=== PATIENT | male | born 1965 | race Caucasian/White ===

== ENCOUNTER 2017-08-08 13:46 | Emergency (ER) | payer OTHER ==
[~2017-08-08] VITALS: Ht 172.7 cm; Wt 78.0 kg
[2017-08-08] MEDS ORDERED: ASPIRIN 81MG TABLET PO ONE (14:30)
[2017-08-08 14:58] LABS: BASOPHILS % 3.7 % (0.0-2.0); HEMATOCRIT. 36.4 % (42.0-52.0); HEMOGLOBIN. 12.4 g/dL (14.0-18.0); LYMPHOCYTES % 51.9 % (20.0-50.0); MEAN CORPUSCULAR HEMOGLOBIN 30.7 pg (28.0-32.0); MEAN CORPUSCULAR VOLUME 90.4 fL (80.0-94.0); MEAN PLATELET VOLUME 8.8 fl (7.4-10.4); MONOCYTES % 9.9 % (2.0-8.0); NEUTROPHILS % 30.5 % (40.0-76.0); PLATELET 182 x1000/uL (130-400); RED BLOOD CELL COUNT 4.02 mill/uL (4.7-6.1); RED CELL DISTRIBUTION WIDTH 17.3 % (11.6-14.6)
[2017-08-08 15:07] LABS: INR 1.1; PROTHROMBIN TIME 11.8 sec (9.4-11.6)
[2017-08-08 15:13] LABS: CARBON DIOXIDE 24 mEq/L (21-32); CHLORIDE 102 mEq/L (98-107)
[2017-08-08 15:15] LABS: TROPONIN I < 0.02 ng/mL (0.00-0.04)
[2017-08-08 15:22] LABS: CLARITY URINE CLEAR (CLEAR); COLOR URINE YELLOW (YELLOW); GLUCOSE URINE NEGATIVE (NEGATIVE); KETONES URINE NEGATIVE (NEGATIVE); LEUKOCYTE ESTERASE URINE NEGATIVE (NEGATIVE); NITRITE URINE NEGATIVE (NEGATIVE); OCCULT BLOOD URINE 1+ (NEGATIVE); PROTEIN URINE 1+ (NEGATIVE); SPECIFIC GRAVITY URINE 1.009 (1.005-1.030); UROBILINOGEN URINE 0.2 E.U./dL (0.2-1.0)
[2017-08-08 15:36] LABS: *AMPHETAMINES SCREEN URINE NEGATIVE (NEGATIVE); *BARBITURATES SCREEN URINE NEGATIVE (NEGATIVE); *BENZODIAZEPINES SCREEN URINE NEGATIVE (NEGATIVE); *COCAINE SCREEN URINE NEGATIVE (NEGATIVE); CANNABINOID URINE SCREEN NEGATIVE (NEGATIVE); METHADONE URINE SCREEN NEGATIVE (NEGATIVE); OPIATES URINE SCREEN NEGATIVE (NEGATIVE); PHENCYCLIDINE URINE SCREEN NEGATIVE (NEGATIVE)
[2017-08-08 17:01] VITALS: BP 142/98
== END 2017-08-08 18:07 | disposition left against medical advice (07) ==
LOC: ER 14:54 → CANBEDREQ 18:04 → ER 18:07
DX: R42 Dizziness and giddiness (principal); R00.2 Palpitations; R07.89 Other chest pain; Z79.82 Long term (current) use of aspirin
CPT/HCPCS: 36415; 71010; 80053; 80305; 81001; 83880; 84484; 85025; 85610; 93005; 99285

== ENCOUNTER 2021-04-18 03:09 | Emergency (ER) | payer OTHER ==
[~2021-04-18] VITALS: Ht 170.2 cm; Wt 75.9 kg
[2021-04-18 04:47] LABS: HEMATOCRIT. 30.4 % (42.0-52.0); MEAN CORPUSCULAR HEMOGLOBIN 26.7 pg (28.0-32.0); MEAN CORPUSCULAR VOLUME 81.5 fL (80.0-94.0); MEAN PLATELET VOLUME 8.8 fl (7.4-10.4); PLATELET 162 x1000/uL (130-400); RED BLOOD CELL COUNT 3.74 mill/uL (4.7-6.1); RED CELL DISTRIBUTION WIDTH 20.2 % (11.6-14.6)
[2021-04-18 04:50] LABS: CLARITY URINE CLOUDY (CLEAR); COLOR URINE YELLOW (YELLOW); KETONES URINE NEGATIVE (NEGATIVE); LEUKOCYTE ESTERASE URINE 3+ (NEGATIVE); NITRITE URINE POSITIVE (NEGATIVE); OCCULT BLOOD URINE 1+ (NEGATIVE); PH URINE 5.5 (4.5-8.0); PROTEIN URINE TRACE (NEGATIVE); SPECIFIC GRAVITY URINE 1.007 (1.005-1.030); UROBILINOGEN URINE 0.2 E.U./dL (0.2-1.0)
[2021-04-18 04:50] LABS: CHLORIDE 103 mEq/L (98-107)
[2021-04-18] MEDS ORDERED: CEFP200T13 MT (05:11)
[2021-04-18] MEDS ORDERED: POTASSIUM CHLORIDE 20MEQ TABLET SR PO ONE (05:30)
[2021-04-18 05:48] VITALS: BP 145/85
[2021-04-18 06:15] LABS: PLATELET ESTIMATE NORMAL
== END 2021-04-18 05:58 | disposition home or self-care (01) ==
LOC: ER 03:09
DX: R33.9 Retention of urine, unspecified (principal)
CPT/HCPCS: 36415; 51702; 80048; 81003; 85025; 87077; 87186; 99283; 99284

== ENCOUNTER 2021-04-24 18:25 | Emergency (ER) | payer OTHER ==
[~2021-04-24] VITALS: Ht 160 cm; Wt 76.0 kg
[~2021-04-24 18:25] MED LIST: CEFP200T13 MT
[2021-04-24 18:31] VITALS: BP 134/60
== END 2021-04-24 19:41 | disposition home or self-care (01) ==
LOC: ER 18:25
DX: N39.0 Urinary tract infection, site not specified (principal); R03.0 Elevated blood-pressure reading, without diagnosis of hypertension
CPT/HCPCS: 99281

== ENCOUNTER 2022-03-24 21:44 | Emergency (ER) | payer OTHER ==
[~2022-03-24] VITALS: Ht 167.6 cm; Wt 75.9 kg
[2022-03-24 21:52] VITALS: BP 125/72
== END 2022-03-25 00:30 | disposition left against medical advice (07) ==
LOC: ER 21:44
DX: Z53.21 Procedure and treatment not carried out due to patient leaving prior to being seen by health care provider (principal)

== ENCOUNTER 2022-09-09 23:10 | Emergency (ER) | payer MEDICAID, OTHER ==
[~2022-09-09] VITALS: Ht 175.3 cm; Wt 74.7 kg
[2022-09-10] MEDS ORDERED: KETOROLAC 60MG/2ML VIAL IM STA (03:02)
[2022-09-10] MEDS ORDERED: ONDANSETRON 4MG ODT PO STA (03:02)
[2022-09-10 03:44] LABS: HEMATOCRIT. 34.8 % (42.0-52.0); HEMOGLOBIN. 11.7 g/dL (14.0-18.0); MEAN CORPUSCULAR HEMOGLOBIN 29.8 pg (28.0-32.0); MEAN CORPUSCULAR VOLUME 88.3 fL (80.0-94.0); MEAN PLATELET VOLUME 9.1 fl (7.4-10.4); PLATELET 127 x1000/uL (130-400); RED BLOOD CELL COUNT 3.94 mill/uL (4.7-6.1); RED CELL DISTRIBUTION WIDTH 17.9 % (11.6-14.6)
[2022-09-10 03:47] LABS: CLARITY URINE CLOUDY (CLEAR); COLOR URINE DARK YELLOW (YELLOW); KETONES URINE TRACE (NEGATIVE); LEUKOCYTE ESTERASE URINE 3+ (NEGATIVE); NITRITE URINE NEGATIVE (NEGATIVE); OCCULT BLOOD URINE 2+ (NEGATIVE); PROTEIN URINE 3+ (NEGATIVE); SPECIFIC GRAVITY URINE 1.013 (1.005-1.030)
[2022-09-10 03:50] LABS: CHLORIDE 94 mEq/L (98-107)
[2022-09-10] MEDS ORDERED: CEFTRIAXONE 1 G PREMIX 50 ML IV ONE (04:30)
[2022-09-10] MEDS ORDERED: SODIUM CHLORIDE 0.9% 1,000 ML IV ONE (04:30)
[2022-09-10 07:05] VITALS: BP 142/78
[2022-09-10] MEDS ORDERED: CEFTRIAXONE 1 G PREMIX 50 ML IV NR (07:31)
[2022-09-10 08:51] LABS: PLATELET ESTIMATE SLIGHTLY DECREASED
== END 2022-09-10 10:45 | disposition short-term general hospital (02) ==
LOC: ER 23:10
DX: R10.12 Left upper quadrant pain (principal); E87.1 Hypo-osmolality and hyponatremia; Z20.822 Contact with and (suspected) exposure to COVID-19; M54.9 Dorsalgia, unspecified; D64.9 Anemia, unspecified
CPT/HCPCS: 36415; 74176; 76705; 80053; 81001; 81003; 83690; 85025; 87077; 87086; 87186; 87426; 96361; 96365; 96372; 99285; C9803; J0696; J1885; J7030; Q0162

== ENCOUNTER 2022-12-12 15:13 | Emergency (ER) | payer OTHER ==
[~2022-12-12] VITALS: Ht 170.2 cm; Wt 67.3 kg
[2022-12-12 15:51] VITALS: BP 143/78
== END 2022-12-12 21:01 | disposition left against medical advice (07) ==
LOC: ER 15:13
DX: Z53.21 Procedure and treatment not carried out due to patient leaving prior to being seen by health care provider (principal)
CPT/HCPCS: 99281

== ENCOUNTER 2024-07-06 15:48 | Emergency (ER) | payer MEDICAID ==
[~2024-07-06] VITALS: Ht 165.1 cm; Wt 73.0 kg
[~2024-07-06 15:48] MED LIST changes: +AMLO10TA80 PO; +ASPI-1406 PO; +KEPP500 PO
[2024-07-06 15:55] VITALS: O2SAT 100
[2024-07-06] MEDS ORDERED: ONDANSETRON HCL 4MG/2ML INJ IV STA (17:15)
[2024-07-06] MEDS ORDERED: PANTOPRAZOLE SODIUM 40 MG/VIAL IV ONE (17:30)
[2024-07-06 18:02] LABS: BASOPHILS % 0.2 % (0.0-2.0); HEMOGLOBIN. 9.2 g/dL (14.0-18.0); LYMPHOCYTES % 15.8 % (20.0-50.0); MEAN CORPUSCULAR HEMOGLOBIN 30.9 pg (28.0-32.0); MEAN CORPUSCULAR HGB CONC 34.2 g/dL (31.0-37.0); MEAN CORPUSCULAR VOLUME 90.4 fL (80.0-94.0); MEAN PLATELET VOLUME 8.6 fl (7.4-10.4); MONOCYTES % 14.2 % (2.0-8.0); NEUTROPHILS % 69.8 % (40.0-76.0); PLATELET 112 x1000/uL (130-400); RED BLOOD CELL COUNT 2.98 mill/uL (4.7-6.1); RED CELL DISTRIBUTION WIDTH 16.7 % (11.6-14.6); WHITE BLOOD COUNT 5.1 x1000/uL (4.5-11.0)
[2024-07-06 18:06] LABS: CHLORIDE 98 mEq/L (98-107); SODIUM 127 mEq/L (136-145)
[2024-07-06 18:07] LABS: CALCIUM 9.1 mg/dL (8.7-10.4); CARBON DIOXIDE 22 mEq/L (21-32)
[2024-07-06 18:11] LABS: ETHANOL BLOOD 133 mg/dL (<10)
[2024-07-06 18:12] LABS: CREATININE 1.1 mg/dL (0.6-1.3); GLUCOSE 113 mg/dL (70-105); PARTIAL THROMBOPLASTIN TIME 27.2 sec (23.4-31.0); PROTHROMBIN TIME 11.4 sec (9.6-11.0); UREA NITROGEN BLOOD 15 mg/dL (9-23)
[2024-07-06 18:14] LABS: ALANINE AMINOTRANSFERASE 20 IU/L (10-49); ALBUMIN 4.1 g/dL (3.2-4.8); ASPARTATE AMINOTRANSFERASE 58 IU/L (<34); BILIRUBIN DIRECT 0.3 mg/dL (<=3.0); BILIRUBIN TOTAL 0.8 mg/dL (0.1-1.0); PROTEIN TOTAL 7.7 g/dL (6.0-8.3)
[2024-07-06] MEDS ORDERED: MORPHINE SULFATE 4 MG/ML INJ (FOR IV/IM USE) IV ONE (18:30)
[2024-07-06 21:36] LABS: HEMATOCRIT 29.4 % (42.0-52.0); HEMOGLOBIN 9.9 g/dL (14.0-18.0)
[2024-07-06] MEDS: MORPHINE SULFATE 4 MG/ML INJ (FOR IV/IM USE) IV NR (21:45)
[2024-07-06] MEDS: ONDANSETRON HCL 4MG/2ML INJ IV NR (21:45)
[2024-07-06] MEDS: PANTOPRAZOLE SODIUM 40 MG/VIAL IV NR (21:45)
[2024-07-06] MEDS: SODIUM CHLORIDE 0.9% 1,000 ML IV ONE (21:49)
[2024-07-07 00:38] VITALS: BP 154/88; PULSE 98; RESP 16; TEMP 37.61412; O2SAT 100
== END 2024-07-07 01:05 | disposition short-term general hospital (02) ==
LOC: ER 15:48
DX: R19.7 Diarrhea, unspecified (principal); R10.32 Left lower quadrant pain; D64.9 Anemia, unspecified; F10.10 Alcohol abuse, uncomplicated; I10 Essential (primary) hypertension; Z86.73 Personal history of transient ischemic attack (TIA), and cerebral infarction without residual deficits; Z79.82 Long term (current) use of aspirin
CPT/HCPCS: 80076; 80048; 80320; 83690; 85014; 85018; 85025; 85610; 85730; 86850; 86900; 86901; 36415; 74176; 96361; 96374; 96375; 99291; J2405; J2470; J2270; J7030; G0480

== ENCOUNTER 2024-09-23 11:45 | Emergency (ER) | payer MEDICAID, OTHER ==
[~2024-09-23] VITALS: Ht 167.6 cm; Wt 74.8 kg
[2024-09-23 11:50] VITALS: TEMP 98.7; O2SAT 99
[2024-09-23] MEDS: IBUPROFEN 400MG TABLET PO ONE (13:28)
[2024-09-23 13:29] VITALS: BP 166/86; PULSE 98; RESP 16
[2024-09-23] MEDS: HYDROCODONE/ACETAMINOPHEN 5/325MG TABLET PO ONE (13:29)
[2024-09-23] MEDS: ONDANSETRON 4MG ODT PO ONE (13:29)
[2024-09-23] MEDS ORDERED: METH-653 MT (13:48)
[2024-09-23] MEDS ORDERED: IBUP-2028 MT (13:48)
[2024-09-23] MEDS ORDERED: LIDO700A15 TP (13:48)
== END 2024-09-23 14:39 | disposition home or self-care (01) ==
LOC: ER 11:58
DX: M25.561 Pain in right knee (principal); G62.9 Polyneuropathy, unspecified; I10 Essential (primary) hypertension; F19.90 Other psychoactive substance use, unspecified, uncomplicated; Z86.73 Personal history of transient ischemic attack (TIA), and cerebral infarction without residual deficits
CPT/HCPCS: 99284; 93970; 73562; Q0162

== ENCOUNTER 2024-10-22 13:24 | Emergency (ER) | payer MEDICAID ==
[~2024-10-22] VITALS: Ht 170.2 cm; Wt 74.8 kg
[~2024-10-22 13:24] MED LIST changes: +IBUP-2028 MT; +LIDO700A15 TP; +METH-653 MT
[2024-10-22 13:44] VITALS: O2SAT 99
[2024-10-22] MEDS: ONDANSETRON 4MG ODT PO ONE (15:45)
[2024-10-22] MEDS: FAMOTIDINE 20MG TABLET PO ONE (15:45)
[2024-10-22] MEDS: IBUPROFEN 400MG TABLET PO ONE (15:46)
[2024-10-22 17:10] LABS: BASOPHILS % 0.9 % (0.0-2.0); HEMATOCRIT. 28.1 % (42.0-52.0); LYMPHOCYTES % 26.3 % (20.0-50.0); MEAN CORPUSCULAR HEMOGLOBIN 27.5 pg (28.0-32.0); MEAN CORPUSCULAR HGB CONC 31.9 g/dL (31.0-37.0); MEAN CORPUSCULAR VOLUME 86.3 fL (80.0-94.0); MEAN PLATELET VOLUME 8.4 fl (7.4-10.4); MONOCYTES % 13.8 % (2.0-8.0); PLATELET 285 x1000/uL (130-400); RED BLOOD CELL COUNT 3.26 mill/uL (4.7-6.1); RED CELL DISTRIBUTION WIDTH 20.2 % (11.6-14.6); WHITE BLOOD COUNT 7.4 x1000/uL (4.5-11.0)
[2024-10-22 17:13] LABS: CARBON DIOXIDE 20 mEq/L (21-32); CHLORIDE 100 mEq/L (98-107); POTASSIUM 3.8 mEq/L (3.5-5.1); SODIUM 131 mEq/L (136-145)
[2024-10-22 17:14] LABS: CALCIUM 9.2 mg/dL (8.7-10.4)
[2024-10-22 17:18] LABS: CREATININE 1.1 mg/dL (0.6-1.3)
[2024-10-22 17:19] LABS: GLUCOSE 102 mg/dL (70-105); UREA NITROGEN BLOOD 20 mg/dL (9-23)
[2024-10-22 17:20] LABS: ALANINE AMINOTRANSFERASE 14 IU/L (10-49); ALBUMIN 4.1 g/dL (3.2-4.8); ASPARTATE AMINOTRANSFERASE 21 IU/L (<34)
[2024-10-22 17:21] LABS: BILIRUBIN TOTAL 0.5 mg/dL (0.1-1.0); PROTEIN TOTAL 7.2 g/dL (6.0-8.3)
[2024-10-22] MEDS ORDERED: ONDA-239 PO (17:38)
[2024-10-22] MEDS ORDERED: SUCR1TAB MT (17:38)
[2024-10-22] MEDS ORDERED: PHEN20SP MT (17:38)
[2024-10-22] MEDS ORDERED: ACET-2708 MT (17:38)
[2024-10-22 18:00] VITALS: BP 149/77; PULSE 92; RESP 18; TEMP 37.1; O2SAT 99
== END 2024-10-22 18:04 | disposition home or self-care (01) ==
LOC: ER 13:24
DX: J02.9 Acute pharyngitis, unspecified (principal); E11.9 Type 2 diabetes mellitus without complications; I10 Essential (primary) hypertension; Z86.73 Personal history of transient ischemic attack (TIA), and cerebral infarction without residual deficits; Z98.890 Other specified postprocedural states; Z79.82 Long term (current) use of aspirin; Z79.899 Other long term (current) drug therapy
CPT/HCPCS: 99284; 80053; 87430; 83690; 85025; 87070; 36415; Q0162

== ENCOUNTER 2024-11-14 14:11 | Emergency (ER) | payer MEDICAID ==
[~2024-11-14] VITALS: Ht 165.1 cm; Wt 70.0 kg
[~2024-11-14 14:11] MED LIST changes: +ACET-2708 MT; +ONDA-239 PO; +PHEN20SP MT; +SUCR1TAB MT
[2024-11-14 14:17] VITALS: O2SAT 96
[2024-11-14 14:21] VITALS: BP 148/81; PULSE 108; RESP 18; TEMP 37.2; O2SAT 98
[2024-11-14] MEDS ORDERED: IBUP-2029 MT (14:52)
[2024-11-14] MEDS: KETOROLAC 15MG/ML VIAL IM ONE (15:16)
== END 2024-11-14 15:19 | disposition home or self-care (01) ==
LOC: ER 14:11
DX: M54.17 Radiculopathy, lumbosacral region (principal); I10 Essential (primary) hypertension; Z98.890 Other specified postprocedural states; Z86.73 Personal history of transient ischemic attack (TIA), and cerebral infarction without residual deficits; Z79.82 Long term (current) use of aspirin; Z79.899 Other long term (current) drug therapy; W19.XXXA Unspecified fall, initial encounter; Y93.89 Activity, other specified; Y92.89 Other specified places as the place of occurrence of the external cause; Y99.8 Other external cause status
CPT/HCPCS: 99283; 96372; J1885

== ENCOUNTER 2024-11-21 12:37 | Emergency (ER) | payer MEDICAID ==
[~2024-11-21] VITALS: Ht 170.2 cm; Wt 72.5 kg
[~2024-11-21 12:37] MED LIST changes: +IBUP-2029 MT
[2024-11-21 12:43] VITALS: O2SAT 98
[2024-11-21 13:25] LABS: HEMATOCRIT. 27.7 % (42.0-52.0); HEMOGLOBIN. 8.7 g/dL (14.0-18.0); MEAN CORPUSCULAR HEMOGLOBIN 26.1 pg (28.0-32.0); MEAN CORPUSCULAR HGB CONC 31.6 g/dL (31.0-37.0); MEAN CORPUSCULAR VOLUME 82.7 fL (80.0-94.0); MEAN PLATELET VOLUME 8.9 fl (7.4-10.4); PLATELET 164 x1000/uL (130-400); RED BLOOD CELL COUNT 3.35 mill/uL (4.7-6.1); RED CELL DISTRIBUTION WIDTH 20.3 % (11.6-14.6); WHITE BLOOD COUNT 13.5 x1000/uL (4.5-11.0)
[2024-11-21 13:29] VITALS: TEMP 36.6
[2024-11-21 13:30] LABS: DIFFERENTIAL COMMENT 1
[2024-11-21 13:31] LABS: CHLORIDE 100 mEq/L (98-107); POTASSIUM 3.4 mEq/L (3.5-5.1); SODIUM 131 mEq/L (136-145)
[2024-11-21 13:32] LABS: CARBON DIOXIDE 19 mEq/L (21-32)
[2024-11-21 13:33] LABS: CALCIUM 8.7 mg/dL (8.7-10.4)
[2024-11-21 13:37] LABS: CREATININE 1.2 mg/dL (0.6-1.3); GLUCOSE 106 mg/dL (70-105); UREA NITROGEN BLOOD 18 mg/dL (9-23)
[2024-11-21 13:41] LABS: TROPONIN I HIGH SENSITIVITY < 4 ng/L (3.0-53)
[2024-11-21 13:50] VITALS: TEMP 97.88
[2024-11-21 13:51] LABS: ANISOCYTOSIS 2+; PLATELET ESTIMATE NORMAL
[2024-11-21 15:30] VITALS: BP 126/75; PULSE 102; RESP 15; O2SAT 98
[2024-11-21 15:44] LABS: TROPONIN I HIGH SENSITIVITY < 4 ng/L (3.0-53)
== END 2024-11-21 15:40 | disposition short-term general hospital (02) ==
LOC: ER 12:37
DX: R07.89 Other chest pain (principal); I10 Essential (primary) hypertension; Z86.73 Personal history of transient ischemic attack (TIA), and cerebral infarction without residual deficits; Z79.82 Long term (current) use of aspirin
CPT/HCPCS: 36415; 71045; 80048; 83880; 84484; 85025; 93005; 99285

== ENCOUNTER 2025-01-12 12:52 | Emergency (ER) | payer MEDICAID ==
[~2025-01-12] VITALS: Ht 165.1 cm; Wt 70.0 kg
[2025-01-12 12:54] VITALS: O2SAT 99
[2025-01-12 12:58] VITALS: BP 114/73; PULSE 99; RESP 15; TEMP 36.8; O2SAT 98
[2025-01-12] MEDS: IBUPROFEN 600MG TABLET PO ONE (16:01)
[2025-01-12 16:14] LABS: CLARITY URINE CLEAR (CLEAR); COLOR URINE YELLOW (YELLOW); GLUCOSE URINE NEGATIVE (NEGATIVE); KETONES URINE NEGATIVE (NEGATIVE); LEUKOCYTE ESTERASE URINE 1+ (NEGATIVE); NITRITE URINE NEGATIVE (NEGATIVE); OCCULT BLOOD URINE NEGATIVE (NEGATIVE); PH URINE 5.5 (4.5-8.0); PROTEIN URINE NEGATIVE (NEGATIVE); SPECIFIC GRAVITY URINE 1.006 (1.005-1.030); UROBILINOGEN URINE 0.2 E.U./dL (0.2-1.0)
[2025-01-12 16:26] LABS: BACTERIA URINE 2+; SQUAMOUS EPITHELIAL CELL URINE RARE /lpf (RARE/1+)
[2025-01-12 16:27] LABS: RBC URINE 0-2 /hpf (0-2)
[2025-01-12] MEDS ORDERED: IBUP-2029 MT (18:38)
== END 2025-01-12 20:10 | disposition home or self-care (01) ==
LOC: ER 12:52
DX: M54.50 Low back pain, unspecified (principal); M51.372 Other intervertebral disc degeneration, lumbosacral region with discogenic back pain and lower extremity pain; I10 Essential (primary) hypertension; Z79.82 Long term (current) use of aspirin; Z86.73 Personal history of transient ischemic attack (TIA), and cerebral infarction without residual deficits
CPT/HCPCS: 81003; 93971; 99284

== ENCOUNTER 2025-01-28 16:34 | Emergency (ER) | payer MEDICAID ==
[~2025-01-28] VITALS: Ht 170.2 cm; Wt 75.0 kg
[~2025-01-28 16:34] MED LIST changes: +LIDO-53 TP; -LIDO700A15 TP
[2025-01-28 16:41] VITALS: O2SAT 99
[2025-01-28 17:18] VITALS: BP 126/71; PULSE 101; RESP 18; TEMP 36.7; O2SAT 97
== END 2025-01-28 22:50 | disposition left against medical advice (07) ==
LOC: ER 16:34
DX: M54.2 Cervicalgia (principal); M54.9 Dorsalgia, unspecified; Z53.21 Procedure and treatment not carried out due to patient leaving prior to being seen by health care provider

== ENCOUNTER 2025-01-30 16:01 | Emergency (ER) | payer MEDICAID ==
[~2025-01-30] VITALS: Ht 170.2 cm; Wt 82.0 kg
[2025-01-30 16:04] VITALS: O2SAT 98
[2025-01-30 16:43] LABS: BASOPHILS % 1.7 % (0.0-2.0); EOSINOPHILS % 0.8 % (0.0-5.0); HEMATOCRIT. 29.1 % (42.0-52.0); HEMOGLOBIN. 9.4 g/dL (14.0-18.0); LYMPHOCYTES % 49.5 % (20.0-50.0); MEAN CORPUSCULAR HEMOGLOBIN 27.7 pg (28.0-32.0); MEAN CORPUSCULAR HGB CONC 32.2 g/dL (31.0-37.0); MONOCYTES % 2.9 % (2.0-8.0); NEUTROPHILS % 45.1 % (40.0-76.0); RED BLOOD CELL COUNT 3.38 mill/uL (4.7-6.1); RED CELL DISTRIBUTION WIDTH 18.2 % (11.6-14.6); WHITE BLOOD COUNT 5.2 x1000/uL (4.5-11.0)
[2025-01-30 16:56] LABS: CHLORIDE 107 mEq/L (98-107); POTASSIUM 4.3 mEq/L (3.5-5.1); SODIUM 141 mEq/L (136-145)
[2025-01-30 16:57] LABS: CARBON DIOXIDE 19 mEq/L (21-32)
[2025-01-30 17:02] LABS: CREATININE 0.9 mg/dL (0.6-1.3)
[2025-01-30 17:03] LABS: GLUCOSE 107 mg/dL (70-105); UREA NITROGEN BLOOD 12 mg/dL (9-23)
[2025-01-30 17:12] LABS: D-DIMER 0.36 mg/L FEU (<0.50); INR 1.1; PROTHROMBIN TIME 11.4 sec (9.6-11.0); TROPONIN I HIGH SENSITIVITY < 4 ng/L (3.0-53)
[2025-01-30 17:23] LABS: DIFFERENTIAL COMMENT 1
[2025-01-30 18:12] LABS: PLATELET 518 x1000/uL (130-400)
[2025-01-30 18:13] LABS: ADD RBC MORPHOLOGY YES
[2025-01-30 18:14] LABS: PLATELET ESTIMATE SLIGHTLY INCREASED
[2025-01-30 18:15] LABS: PLATELET SATELLITISM 2+
[2025-01-30] MEDS ORDERED: TOPUD PO (19:45)
[2025-01-30] MEDS: ACETAMINOPHEN 325MG TABLET PO STA (19:47)
[2025-01-30] MEDS: IBUPROFEN 600MG TABLET PO STA (19:48)
[2025-01-30] MEDS ORDERED: FERR325T6 MT (19:49)
[2025-01-30 20:02] LABS: TROPONIN I HIGH SENSITIVITY < 4 ng/L (3.0-53)
[2025-01-30 20:17] VITALS: BP 139/83; PULSE 72; RESP 18; TEMP 36.8; O2SAT 98
== END 2025-01-30 20:16 | disposition home or self-care (01) ==
LOC: ER 16:01
DX: R07.89 Other chest pain (principal); R03.0 Elevated blood-pressure reading, without diagnosis of hypertension; D64.9 Anemia, unspecified; Z79.82 Long term (current) use of aspirin; Z79.899 Other long term (current) drug therapy
CPT/HCPCS: 36415; 71045; 80048; 83880; 84484; 85025; 85379; 93005; 99285